=== PATIENT | male | born 1955 | race Caucasian/White ===

== ENCOUNTER 2018-11-21 12:16 | Observation (INO) ==
[2018-11-21] MEDS ORDERED: LACTULOSE 20 GM/30 ML UDCUP PO PRN (14:56)
[2018-11-21] MEDS ORDERED: NICOTINE 21 MG/24 HR PATCH TRANSDERM PRN (14:56)
[2018-11-21] MEDS ORDERED: BISACODYL 5 MG TABLET PO PRN (14:56)
[2018-11-21] MEDS ORDERED: diphenhydrAMINE CAP 25 MG CAPSULE PO PRN (14:56)
[2018-11-21] MEDS ORDERED: ACETAMINOPHEN 325 MG TABLET PO PRN (14:56)
[2018-11-21] MEDS ORDERED: DOCUSATE SODIUM 100 MG CAPSULE PO PRN (14:56)
[2018-11-21] MEDS ORDERED: DEXTROSE 10% 25 GM/250 ML BAG IV PRN (14:56)
[2018-11-21] MEDS ORDERED: ONDANSETRON 4 MG/2 ML VIAL IV PRN (14:56)
[2018-11-21] MEDS ORDERED: GLUCAGON 1 MG VIAL IM PRN (14:56)
[2018-11-21] MEDS ORDERED: ALBUTEROL 2.5 MG/3 ML NEB RESP TX PRN (15:10)
[2018-11-21] MEDS: cefTRIAXone 1,000 MG in SYRINGE 1 EACH IV SCH (16:21)
[2018-11-21] MEDS: SODIUM CHLORIDE 0.9% 1,000 ML IV SCH (16:21)
[2018-11-21] MEDS: INSULIN REGULAR 100 UNIT/ML SUBCUT SCH ×2 (17:02→21:03)
[2018-11-21] MEDS ORDERED: lisinopriL 10 MG TABLET PO SCH (21:00)
[2018-11-21] MEDS ORDERED: GABAPENTIN 300 MG CAPSULE PO SCH (21:00)
[2018-11-21] MEDS: cilostazoL 100 MG TABLET PO SCH (21:02)
[2018-11-21] MEDS: ASCORBIC ACID 500 MG TABLET PO SCH (21:02)
[2018-11-21] MEDS: MAGNESIUM CHLORIDE 64 MG TABLET PO SCH (21:03)
[2018-11-21] MEDS: ALPRAZolam 0.5 MG TABLET PO SCH (21:03)
[2018-11-21] MEDS: SIMVASTATIN 40 MG TABLET PO SCH (21:03)
[2018-11-21] MEDS: ASPIRIN EC 81 MG TABLET PO SCH (21:03)
[2018-11-21] MEDS: GABAPENTIN 600 MG TABLET PO SCH (21:26)
[2018-11-22] MEDS: SODIUM CHLORIDE 0.9% 1,000 ML IV SCH ×2 (02:22→14:10)
[2018-11-22 05:20] LABS: Basophils # 0.1 10*3/uL (0.0-0.2); Basophils % 0.4 % (0.0-0.8); Eosinophils # 0.1 10*3/uL (0.0-0.87); Eosinophils % 0.8 % (0.00-10.9); Hematocrit 33.6 VOL% (42.0-52.0); Immature Granulocytes % 0.8 %; Lymphocytes # 2.2 10*3/uL (1.4-4.0); Lymphocytes % 17.3 % (21.2-54.2); Mean Corpuscular HGB Conc 32.7 GM/DL (32-36); Mean Corpuscular Volume 94.4 FL (87-102); Mean Platelet Volume 8.9 FL (9.6-12.0); Monocytes % 7.8 % (1.7-12.7); Neutrophils % 72.9 % (38.7-73.9); Platelet Count 202 T/CUMM (130-400); Red Blood Count 3.56 MC/CUMM (3.8-5.5); Red Cell Distribution Width 13.2 % (9.3-17.3); White Blood Count 12.9 T/CUMM (4-12)
[2018-11-22 05:41] LABS: Calcium 8.9 MG/DL (8.5-10.1); Osmolality,Calculated 283.1 MOS/KG (273-304)
[2018-11-22] MEDS ORDERED: METOPROLOL SUCCINATE XL 25 MG TABLET PO SCH (09:00)
[2018-11-22] MEDS: ASCORBIC ACID 500 MG TABLET PO SCH ×2 (09:15→21:18)
[2018-11-22] MEDS: PANTOPRAZOLE 40 MG TABLET PO SCH (09:16)
[2018-11-22] MEDS: MAGNESIUM CHLORIDE 64 MG TABLET PO SCH ×2 (09:16→21:10)
[2018-11-22] MEDS: METOPROLOL SUCCINATE XL 25 MG TABLET PO SCH (09:16)
[2018-11-22] MEDS: SERTRALINE 50 MG TABLET PO SCH (09:17)
[2018-11-22] MEDS: ENOXAPARIN 40 MG/0.4 ML SYRINGE SUBCUT SCH (09:17)
[2018-11-22] MEDS: GABAPENTIN 300 MG CAPSULE PO SCH (09:17)
[2018-11-22] MEDS: cefTRIAXone 1,000 MG in SYRINGE 1 EACH IV SCH (09:18)
[2018-11-22] MEDS: cilostazoL 100 MG TABLET PO SCH ×2 (09:18→21:19)
[2018-11-22] MEDS: INSULIN REGULAR 100 UNIT/ML SUBCUT SCH ×4 (09:19→21:26)
[2018-11-22] MEDS ORDERED: NON-FORMULARY MEDICATION (Gabapentin 600 MG) PO SCH (21:00)
[2018-11-22] MEDS ORDERED: lisinopriL 10 MG TABLET PO SCH (21:00)
[2018-11-22] MEDS: SIMVASTATIN 40 MG TABLET PO SCH (21:10)
[2018-11-22] MEDS: ALPRAZolam 0.5 MG TABLET PO SCH (21:10)
[2018-11-22] MEDS: GABAPENTIN 600 MG TABLET PO SCH (21:18)
[2018-11-22] MEDS: ASPIRIN EC 81 MG TABLET PO SCH (21:19)
[2018-11-23 05:35] LABS: Basophils % 0.4 % (0.0-0.8); Eosinophils # 0.2 10*3/uL (0.0-0.87); Eosinophils % 1.6 % (0.00-10.9); Hematocrit 34.8 VOL% (42.0-52.0); Hemoglobin 11.3 GM/DL (14.0-18.0); Immature Granulocytes % 0.4 %; Immature Granulocytes Absolute 0.04 #; Lymphocytes # 2.5 10*3/uL (1.4-4.0); Lymphocytes % 24.6 % (21.2-54.2); Mean Corpuscular HGB Conc 32.5 GM/DL (32-36); Mean Corpuscular Volume 92.8 FL (87-102); Mean Platelet Volume 8.8 FL (9.6-12.0); Monocytes % 7.8 % (1.7-12.7); Neutrophils % 65.2 % (38.7-73.9); Platelet Count 226 T/CUMM (130-400); Red Blood Count 3.75 MC/CUMM (3.8-5.5); Red Cell Distribution Width 13.2 % (9.3-17.3); White Blood Count 9.9 T/CUMM (4-12)
[2018-11-23] MEDS: INSULIN REGULAR 100 UNIT/ML SUBCUT SCH ×2 (07:44→12:51)
[2018-11-23] MEDS ORDERED: SIMETHICONE CHEW 125 MG TABLET PO PRN (08:23)
[2018-11-23] MEDS ORDERED: LACTOBACILLUS ACIDOPHILUS/BULGARICUS CAPLET PO SCH (09:00)
[2018-11-23] MEDS: cilostazoL 100 MG TABLET PO SCH (09:06)
[2018-11-23] MEDS: MAGNESIUM CHLORIDE 64 MG TABLET PO SCH (09:06)
[2018-11-23] MEDS: SERTRALINE 50 MG TABLET PO SCH (09:06)
[2018-11-23] MEDS: PANTOPRAZOLE 40 MG TABLET PO SCH (09:06)
[2018-11-23] MEDS: GABAPENTIN 300 MG CAPSULE PO SCH (09:06)
[2018-11-23] MEDS: ASCORBIC ACID 500 MG TABLET PO SCH (09:07)
[2018-11-23] MEDS: ENOXAPARIN 40 MG/0.4 ML SYRINGE SUBCUT SCH (09:07)
[2018-11-23] MEDS: cefTRIAXone 1,000 MG in SYRINGE 1 EACH IV SCH (09:08)
[2018-11-23 11:27] VITALS: BP 104/57
[2018-11-23] MEDS: METOPROLOL SUCCINATE XL 25 MG TABLET PO SCH (12:23)
== END 2018-11-23 13:15 | disposition home or self-care (01) ==
LOC: N.2E → SUATTDRO 12:32
PROVIDERS: ADMIT Internal Medicine; ATTEND Internal Medicine

== ENCOUNTER 2019-04-22 03:57 | Inpatient (IN) ==
[2019-04-22] MEDS ORDERED: PANTOPRAZOLE 40 MG VIAL IV STA (04:07)
[2019-04-22] MEDS ORDERED: LACTATED RINGERS 1,000 ML IV ONE (04:10)
[2019-04-22 04:30] LABS: Basophils # 0.1 10*3/uL (0.0-0.2); Basophils % 0.3 % (0.0-0.8); Eosinophils # 0.1 10*3/uL (0.0-0.87); Eosinophils % 0.7 % (0.00-10.9); Hematocrit 24.6 VOL% (42.0-52.0); Hemoglobin 7.9 GM/DL (14.0-18.0); Immature Granulocytes % 1.2 %; Immature Granulocytes Absolute 0.17 #; Lymphocytes # 2.5 10*3/uL (1.4-4.0); Lymphocytes % 17.1 % (21.2-54.2); Mean Corpuscular HGB Conc 32.1 GM/DL (32-36); Mean Corpuscular Volume 96.5 FL (87-102); Monocytes % 5.9 % (1.7-12.7); Neutrophils % 74.8 % (38.7-73.9); Platelet Count 186 T/CUMM (130-400); Red Blood Count 2.55 MC/CUMM (3.8-5.5); Red Cell Distribution Width 13.6 % (9.3-17.3); White Blood Count 14.6 T/CUMM (4-12)
[2019-04-22 04:40] LABS: PT Patient Result 11.1 SECS (9.6-12.2); Partial Thromboplastin Time < 21.0 SECS (20.8-36.0)
[2019-04-22 04:54] LABS: Albumin 3.2 G/DL (3.4-5.0); Calcium 8.7 MG/DL (8.5-10.1); Osmolality,Calculated 303.5 MOS/KG (273-304); Total Protein 5.5 G/DL (6.4-8.3)
[2019-04-22] MEDS ORDERED: hydrALAZINE 20 MG/1 ML VIAL IV PRN (05:10)
[2019-04-22] MEDS ORDERED: NICOTINE 21 MG/24 HR PATCH TRANSDERM PRN (05:10)
[2019-04-22] MEDS ORDERED: GLUCAGON 1 MG VIAL IM PRN (05:13)
[2019-04-22] MEDS ORDERED: DEXTROSE 10% 250 ML BAG IV PRN (05:14)
[2019-04-22] MEDS: PANTOPRAZOLE INJ 200 MG in SODIUM CHLORIDE 0.9% 250 ML IV SCH (05:17)
[2019-04-22] MEDS ORDERED: SODIUM CHLORIDE 0.9% 1,000 ML IV PRN (05:48)
[2019-04-22 06:03] LABS: Basophils % 0.2 % (0.0-0.8); Eosinophils % 0.2 % (0.00-10.9); Hematocrit 21.8 VOL% (42.0-52.0); Hemoglobin 7.1 GM/DL (14.0-18.0); INR 1.1; Immature Granulocytes % 0.9 %; Lymphocytes # 1.4 10*3/uL (1.4-4.0); Lymphocytes % 11.6 % (21.2-54.2); Mean Corpuscular HGB Conc 32.6 GM/DL (32-36); Mean Corpuscular Volume 95.2 FL (87-102); Monocytes % 3.3 % (1.7-12.7); Neutrophils % 83.8 % (38.7-73.9); PT Patient Result 11.5 SECS (9.6-12.2); Platelet Count 153 T/CUMM (130-400); Red Blood Count 2.29 MC/CUMM (3.8-5.5); Red Cell Distribution Width 13.6 % (9.3-17.3); White Blood Count 11.7 T/CUMM (4-12)
[2019-04-22 07:06] LABS: Sedimentation Rate-Westergren 15 MM/HR (0-20)
[2019-04-22 07:12] LABS: Hematocrit 21.7 VOL% (42.0-52.0); Hemoglobin 7.1 GM/DL (14.0-18.0)
[2019-04-22 07:51] LABS: Folate 8.7 NG/ML (5.4-24.0); Vitamin B12 568 PG/ML (211-911)
[2019-04-22] MEDS: INSULIN REGULAR 100 UNIT/ML SUBCUT SCH ×4 (08:03→21:35)
[2019-04-22] MEDS: SERTRALINE 50 MG TABLET PO SCH (10:13)
[2019-04-22] MEDS: SODIUM CHLORIDE 0.9% 1,000 ML IV SCH (11:37)
[2019-04-22 14:11] LABS: Hematocrit 26.3 VOL% (42.0-52.0); Hemoglobin 8.5 GM/DL (14.0-18.0)
[2019-04-22 20:08] LABS: Hematocrit 26.3 VOL% (42.0-52.0); Hemoglobin 8.6 GM/DL (14.0-18.0)
[2019-04-22] MEDS: TAMSULOSIN 0.4 MG CAPSULE PO SCH (21:02)
[2019-04-23] MEDS: ACETAMINOPHEN 325 MG TABLET PO PRN (00:02)
[2019-04-23] MEDS: ALPRAZolam 0.5 MG TABLET PO PRN ×2 (00:02→20:39)
[2019-04-23] MEDS: SODIUM CHLORIDE 0.9% 1,000 ML IV SCH ×4 (00:06→22:20)
[2019-04-23 05:28] LABS: Basophils % 0.2 % (0.0-0.8); Eosinophils # 0.1 10*3/uL (0.0-0.87); Eosinophils % 1.1 % (0.00-10.9); Hematocrit 25.7 VOL% (42.0-52.0); Hemoglobin 8.4 GM/DL (14.0-18.0); Immature Granulocytes % 0.4 %; Immature Granulocytes Absolute 0.04 #; Lymphocytes # 2.9 10*3/uL (1.4-4.0); Lymphocytes % 27.8 % (21.2-54.2); Mean Corpuscular HGB Conc 32.7 GM/DL (32-36); Mean Corpuscular Volume 94.5 FL (87-102); Mean Platelet Volume 9.3 FL (9.6-12.0); Monocytes % 7.1 % (1.7-12.7); Neutrophils % 63.4 % (38.7-73.9); Platelet Count 138 T/CUMM (130-400); Red Blood Count 2.72 MC/CUMM (3.8-5.5); Red Cell Distribution Width 13.9 % (9.3-17.3); White Blood Count 10.6 T/CUMM (4-12)
[2019-04-23 05:46] LABS: Calcium 8.3 MG/DL (8.5-10.1); Osmolality,Calculated 281.7 MOS/KG (273-304)
[2019-04-23] MEDS: PANTOPRAZOLE INJ 200 MG in SODIUM CHLORIDE 0.9% 250 ML IV SCH (06:38)
[2019-04-23] MEDS: INSULIN REGULAR 100 UNIT/ML SUBCUT SCH ×4 (07:34→20:47)
[2019-04-23] MEDS ORDERED: ETOMIDATE 40 MG/20 ML VIAL IV ONE (08:29)
[2019-04-23] MEDS ORDERED: propofoL 200 MG/20 ML VIAL IV ONE (08:29)
[2019-04-23] MEDS ORDERED: LIDOCAINE 2% 5 ML VIAL ONE (08:29)
[2019-04-23] MEDS ORDERED: PANTOPRAZOLE 40 MG TABLET PO SCH (09:00)
[2019-04-23] MEDS: PANTOPRAZOLE 40 MG TABLET PO SCH ×2 (09:40→20:39)
[2019-04-23] MEDS: SERTRALINE 50 MG TABLET PO SCH (09:40)
[2019-04-23] MEDS: ASPIRIN EC 81 MG TABLET PO SCH (09:40)
[2019-04-23] MEDS: GABAPENTIN 300 MG CAPSULE PO SCH (14:38)
[2019-04-23] MEDS ORDERED: ALUMINUM/MAGNES/SIMETH MAX STR 30 ML UDCUP PO PRN (19:03)
[2019-04-23] MEDS ORDERED: CALCIUM CARBONATE CHEW 500 MG TABLET PO PRN (19:57)
[2019-04-23] MEDS: TAMSULOSIN 0.4 MG CAPSULE PO SCH (20:39)
[2019-04-23] MEDS: ROSUVASTATIN 20 MG TABLET PO SCH (20:39)
[2019-04-23] MEDS: GABAPENTIN 600 MG TABLET PO SCH (20:39)
[2019-04-24 05:05] LABS: Basophils % 0.3 % (0.0-0.8); Eosinophils # 0.1 10*3/uL (0.0-0.87); Eosinophils % 0.9 % (0.00-10.9); Hematocrit 24.5 VOL% (42.0-52.0); Hemoglobin 8.2 GM/DL (14.0-18.0); Immature Granulocytes % 0.6 %; Immature Granulocytes Absolute 0.07 #; Lymphocytes # 2.2 10*3/uL (1.4-4.0); Lymphocytes % 19.8 % (21.2-54.2); Mean Corpuscular HGB Conc 33.5 GM/DL (32-36); Mean Corpuscular Volume 94.2 FL (87-102); Mean Platelet Volume 9.4 FL (9.6-12.0); Neutrophils % 70.4 % (38.7-73.9); Platelet Count 127 T/CUMM (130-400); Red Cell Distribution Width 13.5 % (9.3-17.3); White Blood Count 11.3 T/CUMM (4-12)
[2019-04-24 05:21] LABS: Calcium 8.5 MG/DL (8.5-10.1)
[2019-04-24] MEDS: MORPHINE 4 MG/1 ML VIAL IV PRN ×3 (06:40→15:43)
[2019-04-24] MEDS ORDERED: ALUMINUM/MAGNES/SIMETH MAX STR 30 ML UDCUP PO ONE (09:22)
[2019-04-24] MEDS: SERTRALINE 50 MG TABLET PO SCH (09:51)
[2019-04-24] MEDS: ASPIRIN EC 81 MG TABLET PO SCH (09:51)
[2019-04-24] MEDS: PANTOPRAZOLE 40 MG TABLET PO SCH ×2 (09:51→20:19)
[2019-04-24] MEDS: GABAPENTIN 300 MG CAPSULE PO SCH (09:51)
[2019-04-24] MEDS: INSULIN REGULAR 100 UNIT/ML SUBCUT SCH ×4 (09:52→20:20)
[2019-04-24 10:15] LABS: Hemoglobin A1 (Alkaline) 96.8 % (96.5-98.5); Hemoglobin A2 (Alkaline) 3.2 % (1.5-3.5)
[2019-04-24] MEDS ORDERED: NITROGLYCERIN SL 0.4 MG TABLET SL PRN (10:20)
[2019-04-24] MEDS ORDERED: ASPIRIN CHEW 81 MG TABLET PO STA (10:25)
[2019-04-24] MEDS: METOPROLOL TARTRATE 25 MG TABLET PO SCH ×2 (10:43→20:19)
[2019-04-24] MEDS: ONDANSETRON 4 MG/2 ML VIAL IV PRN (10:44)
[2019-04-24] MEDS ORDERED: SODIUM CHLORIDE 0.9% 1,000 ML IV PRN ×2 (11:03→15:35)
[2019-04-24 12:20] LABS: CKMB % 9.9 %
[2019-04-24 12:26] LABS: Troponin I 11.9 NG/ML (0.00-0.045)
[2019-04-24] MEDS: SODIUM CHLORIDE 0.9% 1,000 ML IV SCH ×2 (12:32→23:55)
[2019-04-24 13:00] LABS: Hematocrit 23.5 VOL% (42.0-52.0); Hemoglobin 7.9 GM/DL (14.0-18.0)
[2019-04-24] MEDS: ENOXAPARIN 80 MG/0.8 ML SYRINGE SUBCUT SCH (13:38)
[2019-04-24 15:09] LABS: CKMB % 10.5 %
[2019-04-24 15:56] LABS: Troponin I 26.9 NG/ML (0.00-0.045)
[2019-04-24 17:17] LABS: Hematocrit 24.7 VOL% (42.0-52.0)
[2019-04-24 17:52] LABS: CKMB % 10.4 %
[2019-04-24 17:56] LABS: Troponin I 39.3 NG/ML (0.00-0.045)
[2019-04-24] MEDS: GABAPENTIN 600 MG TABLET PO SCH (20:19)
[2019-04-24] MEDS: TAMSULOSIN 0.4 MG CAPSULE PO SCH (20:19)
[2019-04-24] MEDS: ROSUVASTATIN 20 MG TABLET PO SCH (20:19)
[2019-04-25] MEDS: ENOXAPARIN 80 MG/0.8 ML SYRINGE SUBCUT SCH ×2 (01:00→14:08)
[2019-04-25 01:16] LABS: Hematocrit 28.6 VOL% (42.0-52.0); Hemoglobin 9.4 GM/DL (14.0-18.0)
[2019-04-25 02:34] LABS: CKMB % 7.3 %
[2019-04-25 06:56] LABS: Calcium 7.9 MG/DL (8.5-10.1); Osmolality,Calculated 273.2 MOS/KG (273-304)
[2019-04-25 07:53] LABS: Basophils % 0.1 % (0.0-0.8); Hematocrit 27.9 VOL% (42.0-52.0); Hemoglobin 9.3 GM/DL (14.0-18.0); Immature Granulocytes % 0.6 %; Immature Granulocytes Absolute 0.05 #; Lymphocytes # 1.7 10*3/uL (1.4-4.0); Lymphocytes % 21.3 % (21.2-54.2); Mean Corpuscular HGB Conc 33.3 GM/DL (32-36); Mean Corpuscular Volume 94.6 FL (87-102); Monocytes % 9.8 % (1.7-12.7); Neutrophils % 68.2 % (38.7-73.9); Platelet Count 62 T/CUMM (130-400); Red Blood Count 2.95 MC/CUMM (3.8-5.5); Red Cell Distribution Width 14.4 % (9.3-17.3); White Blood Count 8.1 T/CUMM (4-12)
[2019-04-25 08:22] LABS: Hypochromasia Slight; Microcytosis Slight; Platelet Estimate Decreased
[2019-04-25 08:23] LABS: Polychromasia Slight
[2019-04-25] MEDS: METOPROLOL TARTRATE 25 MG TABLET PO SCH ×2 (09:15→21:18)
[2019-04-25] MEDS: GABAPENTIN 300 MG CAPSULE PO SCH (09:37)
[2019-04-25] MEDS: PANTOPRAZOLE 40 MG TABLET PO SCH ×2 (09:38→21:17)
[2019-04-25] MEDS: SERTRALINE 50 MG TABLET PO SCH (09:39)
[2019-04-25] MEDS: ASPIRIN EC 81 MG TABLET PO SCH (09:50)
[2019-04-25] MEDS ORDERED: SODIUM CHLORIDE 0.9% 1,000 ML IV PRN (10:14)
[2019-04-25] MEDS: INSULIN REGULAR 100 UNIT/ML SUBCUT SCH ×4 (10:27→21:25)
[2019-04-25] MEDS: SODIUM CHLORIDE 0.9% 1,000 ML IV SCH (10:27)
[2019-04-25] MEDS ORDERED: FUROSEMIDE 40 MG TABLET PO SCH (10:30)
[2019-04-25] MEDS: SACUBITRIL/VALSARTAN 49-51 MG TABLET PO SCH ×2 (11:20→21:18)
[2019-04-25 11:43] LABS: Amorphous Crystals,Urine Few /HPF (Few); Apearance,Urine CLOUDY (Clear); Bacteria,Urine Few /HPF (Few); Bilirubin,Urine Negative (Negative); Blood, Urine Large mg/dL (Negative); Glucose,Urine (UA) Negative (Negative); Ketones,Urine 5 mg/dL (Negative); Mucus,Urine Occasional /LPF (Occasional); Nitrite,Urine Negative (Negative); Protein,Urine 100 MG/DL; Squamous Epithelial Cell,Urine Occasional /HPF (0-10); Urine Color Amber (Yellow); Urine Specific Gravity 1.017 (1.001-1.035); Urine Urobilinogen < 2.0 EU/DL (0.2-1.0); WBC,Urine 3 /HPF (0-6)
[2019-04-25] MEDS: MORPHINE 4 MG/1 ML VIAL IV PRN (18:24)
[2019-04-25 21:03] LABS: Hematocrit 34.2 VOL% (42.0-52.0); Hemoglobin 11.1 GM/DL (14.0-18.0)
[2019-04-25] MEDS: ROSUVASTATIN 20 MG TABLET PO SCH (21:18)
[2019-04-25] MEDS: ALPRAZolam 0.5 MG TABLET PO PRN (21:18)
[2019-04-25] MEDS: TAMSULOSIN 0.4 MG CAPSULE PO SCH (21:19)
[2019-04-25] MEDS: diphenhydrAMINE CAP 25 MG CAPSULE PO PRN (21:19)
[2019-04-25] MEDS: GABAPENTIN 600 MG TABLET PO SCH (21:24)
[2019-04-26] MEDS: ENOXAPARIN 80 MG/0.8 ML SYRINGE SUBCUT SCH ×2 (00:51→14:19)
[2019-04-26 05:08] LABS: Basophils % 0.3 % (0.0-0.8); Eosinophils % 0.1 % (0.00-10.9); Hematocrit 34.7 VOL% (42.0-52.0); Hemoglobin 11.5 GM/DL (14.0-18.0); Immature Granulocytes % 0.7 %; Immature Granulocytes Absolute 0.05 #; Lymphocytes % 14.4 % (21.2-54.2); Mean Corpuscular HGB Conc 33.1 GM/DL (32-36); Mean Corpuscular Volume 92.8 FL (87-102); Mean Platelet Volume 10.7 FL (9.6-12.0); Monocytes % 7.1 % (1.7-12.7); NRBC # 0.02 10*3/uL; Neutrophils % 77.4 % (38.7-73.9); Red Blood Count 3.74 MC/CUMM (3.8-5.5); Red Cell Distribution Width 14.6 % (9.3-17.3); White Blood Count 7.2 T/CUMM (4-12)
[2019-04-26 05:15] LABS: Platelet Count 52 T/CUMM (130-400)
[2019-04-26 05:27] LABS: Hypochromasia 1+; Platelet Estimate Decreased
[2019-04-26 05:28] LABS: Microcytosis Slight
[2019-04-26 05:36] LABS: Calcium 7.6 MG/DL (8.5-10.1); Osmolality,Calculated 286.4 MOS/KG (273-304)
[2019-04-26] MEDS: INSULIN REGULAR 100 UNIT/ML SUBCUT SCH ×4 (08:22→21:35)
[2019-04-26] MEDS: SACUBITRIL/VALSARTAN 49-51 MG TABLET PO SCH ×2 (08:24→21:32)
[2019-04-26] MEDS: ASPIRIN EC 81 MG TABLET PO SCH (08:24)
[2019-04-26] MEDS: GABAPENTIN 300 MG CAPSULE PO SCH (08:24)
[2019-04-26] MEDS: FUROSEMIDE 20 MG TABLET PO SCH (08:24)
[2019-04-26] MEDS: SERTRALINE 50 MG TABLET PO SCH (08:25)
[2019-04-26] MEDS: PANTOPRAZOLE 40 MG TABLET PO SCH ×2 (08:25→21:34)
[2019-04-26] MEDS: METOPROLOL TARTRATE 25 MG TABLET PO SCH ×2 (08:25→21:33)
[2019-04-26] MEDS: diphenhydrAMINE CAP 25 MG CAPSULE PO PRN ×2 (08:25→21:34)
[2019-04-26] MEDS ORDERED: DOCUSATE SODIUM 100 MG CAPSULE PO SCH (09:00)
[2019-04-26] MEDS: ALBUTEROL/IPRATROPIUM 3 ML NEB RESP TX PRN ×2 (11:55→21:07)
[2019-04-26] MEDS ORDERED: BISACODYL 10 MG SUPP RECTAL ONE (12:17)
[2019-04-26] MEDS: POLYETHYLENE GLYCOL POWDER 17 GM PACK PO SCH ×2 (14:19→21:35)
[2019-04-26] MEDS: ROSUVASTATIN 20 MG TABLET PO SCH (21:32)
[2019-04-26] MEDS: ALPRAZolam 0.5 MG TABLET PO PRN (21:33)
[2019-04-26] MEDS: TAMSULOSIN 0.4 MG CAPSULE PO SCH (21:34)
[2019-04-26] MEDS: GABAPENTIN 600 MG TABLET PO SCH (21:35)
[2019-04-26] MEDS: MORPHINE 4 MG/1 ML VIAL IV PRN (21:35)
[2019-04-26] MEDS ORDERED: DILTIAZEM 25 MG/5 ML VIAL IV ONE (22:44)
[2019-04-26] MEDS: dilTIAZem Drip 125 MG/125 ML PREMIX IV SCH (22:53)
[2019-04-27] MEDS: ENOXAPARIN 80 MG/0.8 ML SYRINGE SUBCUT SCH ×2 (02:57→12:53)
[2019-04-27 06:17] LABS: Basophils % 0.2 % (0.0-0.8); Eosinophils % 0.2 % (0.00-10.9); Hematocrit 34.4 VOL% (42.0-52.0); Hemoglobin 11.4 GM/DL (14.0-18.0); Immature Granulocytes % 1.3 %; Immature Granulocytes Absolute 0.07 #; Lymphocytes # 0.7 10*3/uL (1.4-4.0); Lymphocytes % 12.5 % (21.2-54.2); Mean Corpuscular HGB Conc 33.1 GM/DL (32-36); Mean Corpuscular Volume 91.7 FL (87-102); Mean Platelet Volume 10.2 FL (9.6-12.0); Monocytes % 6.9 % (1.7-12.7); Neutrophils % 78.9 % (38.7-73.9); Platelet Count 57 T/CUMM (130-400); Red Blood Count 3.75 MC/CUMM (3.8-5.5); Red Cell Distribution Width 14.5 % (9.3-17.3); White Blood Count 5.5 T/CUMM (4-12)
[2019-04-27 06:35] LABS: Calcium 7.6 MG/DL (8.5-10.1); Osmolality,Calculated 285.5 MOS/KG (273-304)
[2019-04-27 06:53] LABS: Hypochromasia 1+; Lymphocytes 10 % (20-55); Microcytosis Slight; Nucleated Red Blood Cells 1 (0-5); Platelet Estimate Decreased; Segmented Neutrophils 82 % (50-85); Total Cells Counted 100
[2019-04-27] MEDS ORDERED: FUROSEMIDE 40 MG/4 ML VIAL IV ONE (08:12)
[2019-04-27] MEDS: dilTIAZem Drip 125 MG/125 ML PREMIX IV SCH ×2 (08:23→23:10)
[2019-04-27] MEDS: INSULIN REGULAR 100 UNIT/ML SUBCUT SCH ×4 (08:33→21:58)
[2019-04-27] MEDS: ASPIRIN EC 81 MG TABLET PO SCH (08:43)
[2019-04-27] MEDS: SERTRALINE 50 MG TABLET PO SCH (08:43)
[2019-04-27] MEDS: PANTOPRAZOLE 40 MG TABLET PO SCH ×2 (08:43→21:58)
[2019-04-27] MEDS: ASCORBIC ACID 500 MG TABLET PO SCH ×2 (08:43→21:59)
[2019-04-27] MEDS: AMIODARONE 200 MG TABLET PO SCH ×2 (08:44→21:59)
[2019-04-27] MEDS: CLOPIDOGREL 75 MG TABLET PO SCH (08:44)
[2019-04-27] MEDS: GABAPENTIN 300 MG CAPSULE PO SCH (08:44)
[2019-04-27] MEDS: FLUTICASONE 50 MCG NASAL SPRAY 16 GM BOTTLE BOTH NARES SCH (08:44)
[2019-04-27] MEDS: POLYETHYLENE GLYCOL POWDER 17 GM PACK PO SCH ×2 (08:45→21:59)
[2019-04-27] MEDS: ALBUTEROL/IPRATROPIUM 3 ML NEB RESP TX PRN (09:00)
[2019-04-27] MEDS ORDERED: LEVALBUTEROL 1.25 MG/3 ML NEB RESP TX PRN (11:14)
[2019-04-27] MEDS: methylPREDNISolone SOD SUC 40 MG/1 ML VIAL IV SCH ×2 (12:06→21:59)
[2019-04-27] MEDS: PIPERACILLIN/TAZOBACTAM 3,375 MG in SODIUM CHLORIDE 0.9% 100 ML IV SCH ×2 (12:06→22:00)
[2019-04-27] MEDS: LEVALBUTEROL 1.25 MG/3 ML NEB RESP TX SCH ×2 (13:16→19:16)
[2019-04-27] MEDS: FUROSEMIDE 20 MG TABLET PO SCH (13:21)
[2019-04-27] MEDS: carvediloL 3.125 MG TABLET PO SCH ×2 (13:21→20:30)
[2019-04-27] MEDS ORDERED: DOCUSATE CALCIUM 240 MG CAPSULE PO PRN (14:32)
[2019-04-27] MEDS ORDERED: AMIODARONE INJ 150 MG in DEXTROSE 5% 100 ML IV ONE (19:24)
[2019-04-27] MEDS ORDERED: AMIODARONE INJ 450 MG in DEXTROSE 5% 241 ML IV SCH (19:30)
[2019-04-27 19:36] LABS: HIT Interpretation Negative (Negative)
[2019-04-27] MEDS: ROSUVASTATIN 20 MG TABLET PO SCH (21:58)
[2019-04-27] MEDS: TAMSULOSIN 0.4 MG CAPSULE PO SCH (21:59)
[2019-04-28] MEDS: ENOXAPARIN 80 MG/0.8 ML SYRINGE SUBCUT SCH ×2 (01:30→15:01)
[2019-04-28] MEDS: LEVALBUTEROL 1.25 MG/3 ML NEB RESP TX SCH ×4 (02:04→20:21)
[2019-04-28] MEDS: methylPREDNISolone SOD SUC 40 MG/1 ML VIAL IV SCH ×3 (04:04→22:30)
[2019-04-28] MEDS: PIPERACILLIN/TAZOBACTAM 3,375 MG in SODIUM CHLORIDE 0.9% 100 ML IV SCH ×3 (04:05→21:30)
[2019-04-28] MEDS: AMIODARONE INJ 450 MG in DEXTROSE 5% 241 ML IV SCH ×4 (04:37→23:00)
[2019-04-28 05:34] LABS: Hematocrit 37.3 VOL% (42.0-52.0); Hemoglobin 12.2 GM/DL (14.0-18.0); Immature Granulocytes % 0.4 %; Immature Granulocytes Absolute 0.02 #; Lymphocytes # 0.3 10*3/uL (1.4-4.0); Lymphocytes % 5.2 % (21.2-54.2); Mean Corpuscular HGB Conc 32.7 GM/DL (32-36); Mean Corpuscular Volume 92.6 FL (87-102); Mean Platelet Volume 9.8 FL (9.6-12.0); Monocytes % 4.4 % (1.7-12.7); Platelet Count 74 T/CUMM (130-400); Red Blood Count 4.03 MC/CUMM (3.8-5.5); Red Cell Distribution Width 14.2 % (9.3-17.3); White Blood Count 4.8 T/CUMM (4-12)
[2019-04-28 05:56] LABS: Calcium 7.7 MG/DL (8.5-10.1); Osmolality,Calculated 295.4 MOS/KG (273-304)
[2019-04-28 06:10] LABS: Hypochromasia 1+; Microcytosis Slight; Platelet Estimate Decreased
[2019-04-28] MEDS ORDERED: SODIUM CHLORIDE 0.9% 250 ML IV ONE ×2 (08:00→17:14)
[2019-04-28] MEDS: INSULIN REGULAR 100 UNIT/ML SUBCUT SCH ×4 (09:01→22:36)
[2019-04-28] MEDS: dilTIAZem Drip 125 MG/125 ML PREMIX IV SCH (09:03)
[2019-04-28] MEDS: AMIODARONE 200 MG TABLET PO SCH ×2 (09:11→22:35)
[2019-04-28] MEDS: ASPIRIN EC 81 MG TABLET PO SCH (09:11)
[2019-04-28] MEDS: carvediloL 3.125 MG TABLET PO SCH ×2 (09:11→22:36)
[2019-04-28] MEDS: SERTRALINE 50 MG TABLET PO SCH (09:11)
[2019-04-28] MEDS: ASCORBIC ACID 500 MG TABLET PO SCH ×2 (09:11→22:37)
[2019-04-28] MEDS: CLOPIDOGREL 75 MG TABLET PO SCH (09:11)
[2019-04-28] MEDS: PANTOPRAZOLE 40 MG TABLET PO SCH ×2 (09:11→22:37)
[2019-04-28] MEDS: FLUTICASONE 50 MCG NASAL SPRAY 16 GM BOTTLE BOTH NARES SCH (09:12)
[2019-04-28] MEDS: POLYETHYLENE GLYCOL POWDER 17 GM PACK PO SCH (09:12)
[2019-04-28] MEDS: LINACLOTIDE 145 MCG CAPSULE PO SCH (10:44)
[2019-04-28] MEDS ORDERED: INSULIN REGULAR 100 UNIT/ML SUBCUT ONE (12:35)
[2019-04-28] MEDS ORDERED: MAGNESIUM HYDROXIDE SUSP 30 ML UDCUP PO ONE (14:20)
[2019-04-28] MEDS: ROSUVASTATIN 20 MG TABLET PO SCH (22:36)
[2019-04-28] MEDS: TAMSULOSIN 0.4 MG CAPSULE PO SCH (22:36)
[2019-04-28] MEDS: INSULIN GLARGINE 100 UNIT/ML SUBCUT SCH (22:37)
[2019-04-29] MEDS: LEVALBUTEROL 1.25 MG/3 ML NEB RESP TX SCH ×4 (02:15→19:24)
[2019-04-29] MEDS: AMIODARONE INJ 450 MG in DEXTROSE 5% 241 ML IV SCH (02:58)
[2019-04-29] MEDS: dilTIAZem Drip 125 MG/125 ML PREMIX IV SCH (03:00)
[2019-04-29] MEDS: PIPERACILLIN/TAZOBACTAM 3,375 MG in SODIUM CHLORIDE 0.9% 100 ML IV SCH ×3 (03:25→20:25)
[2019-04-29 04:37] LABS: Basophils % 0.1 % (0.0-0.8); Hematocrit 40.4 VOL% (42.0-52.0); Hemoglobin 12.9 GM/DL (14.0-18.0); Immature Granulocytes % 0.4 %; Immature Granulocytes Absolute 0.06 #; Lymphocytes # 0.7 10*3/uL (1.4-4.0); Lymphocytes % 4.2 % (21.2-54.2); Mean Corpuscular HGB Conc 31.9 GM/DL (32-36); Mean Corpuscular Volume 95.3 FL (87-102); Mean Platelet Volume 10.4 FL (9.6-12.0); Monocytes % 3.2 % (1.7-12.7); Neutrophils % 92.1 % (38.7-73.9); Platelet Count 108 T/CUMM (130-400); Red Blood Count 4.24 MC/CUMM (3.8-5.5); Red Cell Distribution Width 14.7 % (9.3-17.3); White Blood Count 15.8 T/CUMM (4-12)
[2019-04-29 05:00] LABS: Calcium 7.6 MG/DL (8.5-10.1); Osmolality,Calculated 287.2 MOS/KG (273-304)
[2019-04-29 06:57] LABS: Anisocytosis 1+; Lymphocytes 4 % (20-55); Platelet Estimate Adequate; Segmented Neutrophils 95 % (50-85); Total Cells Counted 100
[2019-04-29] MEDS: INSULIN REGULAR 100 UNIT/ML SUBCUT SCH ×4 (08:58→21:23)
[2019-04-29] MEDS: AMIODARONE 200 MG TABLET PO SCH ×2 (08:58→21:20)
[2019-04-29] MEDS: SERTRALINE 50 MG TABLET PO SCH (08:59)
[2019-04-29] MEDS: PANTOPRAZOLE 40 MG TABLET PO SCH ×2 (08:59→21:21)
[2019-04-29] MEDS: carvediloL 3.125 MG TABLET PO SCH (08:59)
[2019-04-29] MEDS: ASPIRIN EC 81 MG TABLET PO SCH (08:59)
[2019-04-29] MEDS: ASCORBIC ACID 500 MG TABLET PO SCH ×2 (08:59→21:21)
[2019-04-29] MEDS: LINACLOTIDE 145 MCG CAPSULE PO SCH (08:59)
[2019-04-29] MEDS: CLOPIDOGREL 75 MG TABLET PO SCH (08:59)
[2019-04-29] MEDS: FLUTICASONE 50 MCG NASAL SPRAY 16 GM BOTTLE BOTH NARES SCH (09:09)
[2019-04-29] MEDS: methylPREDNISolone SOD SUC 40 MG/1 ML VIAL IV SCH ×2 (13:32→23:34)
[2019-04-29] MEDS: ENOXAPARIN 80 MG/0.8 ML SYRINGE SUBCUT SCH (14:16)
[2019-04-29] MEDS: carvediloL 6.25 MG TABLET PO SCH (17:09)
[2019-04-29] MEDS: ROSUVASTATIN 20 MG TABLET PO SCH (21:21)
[2019-04-29] MEDS: TAMSULOSIN 0.4 MG CAPSULE PO SCH (21:21)
[2019-04-29] MEDS: INSULIN GLARGINE 100 UNIT/ML SUBCUT SCH (21:22)
[2019-04-30] MEDS: LEVALBUTEROL 1.25 MG/3 ML NEB RESP TX SCH ×4 (01:26→20:54)
[2019-04-30] MEDS: PIPERACILLIN/TAZOBACTAM 3,375 MG in SODIUM CHLORIDE 0.9% 100 ML IV SCH ×3 (04:21→21:57)
[2019-04-30 05:40] LABS: Basophils % 0.1 % (0.0-0.8); Hematocrit 37.2 VOL% (42.0-52.0); Hemoglobin 12.7 GM/DL (14.0-18.0); Immature Granulocytes % 0.6 %; Immature Granulocytes Absolute 0.09 #; Lymphocytes # 0.8 10*3/uL (1.4-4.0); Lymphocytes % 5.1 % (21.2-54.2); Mean Corpuscular HGB Conc 34.1 GM/DL (32-36); Mean Corpuscular Volume 90.7 FL (87-102); Mean Platelet Volume 10.2 FL (9.6-12.0); Monocytes % 3.3 % (1.7-12.7); Neutrophils % 90.9 % (38.7-73.9); Platelet Count 130 T/CUMM (130-400); Red Cell Distribution Width 14.9 % (9.3-17.3); White Blood Count 15.6 T/CUMM (4-12)
[2019-04-30 06:07] LABS: Calcium 7.9 MG/DL (8.5-10.1); Osmolality,Calculated 293.7 MOS/KG (273-304)
[2019-04-30] MEDS: INSULIN REGULAR 100 UNIT/ML SUBCUT SCH ×4 (09:34→21:57)
[2019-04-30] MEDS: LINACLOTIDE 145 MCG CAPSULE PO SCH (09:34)
[2019-04-30] MEDS: ASPIRIN EC 81 MG TABLET PO SCH (09:35)
[2019-04-30] MEDS: SERTRALINE 50 MG TABLET PO SCH (09:36)
[2019-04-30] MEDS: carvediloL 6.25 MG TABLET PO SCH ×2 (09:36→17:00)
[2019-04-30] MEDS: ASCORBIC ACID 500 MG TABLET PO SCH ×2 (09:36→21:58)
[2019-04-30] MEDS: AMIODARONE 200 MG TABLET PO SCH ×2 (09:36→21:59)
[2019-04-30] MEDS: PANTOPRAZOLE 40 MG TABLET PO SCH ×2 (09:36→21:59)
[2019-04-30] MEDS: CLOPIDOGREL 75 MG TABLET PO SCH (09:36)
[2019-04-30] MEDS: FLUTICASONE 50 MCG NASAL SPRAY 16 GM BOTTLE BOTH NARES SCH (09:37)
[2019-04-30 10:30] LABS: Band Neutrophils 1 % (0-10); Lymphocytes 1 % (20-55); Platelet Estimate Adequate; Segmented Neutrophils 97 % (50-85); Total Cells Counted 100
[2019-04-30] MEDS: methylPREDNISolone SOD SUC 40 MG/1 ML VIAL IV SCH (11:15)
[2019-04-30] MEDS ORDERED: ENOXAPARIN 80 MG/0.8 ML SYRINGE SUBCUT ONE (14:00)
[2019-04-30] MEDS: INSULIN GLARGINE 100 UNIT/ML SUBCUT SCH (21:58)
[2019-04-30] MEDS: ROSUVASTATIN 20 MG TABLET PO SCH (21:59)
[2019-04-30] MEDS: TAMSULOSIN 0.4 MG CAPSULE PO SCH (21:59)
[2019-05-01] MEDS: methylPREDNISolone SOD SUC 40 MG/1 ML VIAL IV SCH ×2 (00:33→10:41)
[2019-05-01] MEDS: LEVALBUTEROL 1.25 MG/3 ML NEB RESP TX SCH ×4 (01:14→20:41)
[2019-05-01 04:14] LABS: Basophils % 0.1 % (0.0-0.8); Hemoglobin 12.9 GM/DL (14.0-18.0); Immature Granulocytes % 0.9 %; Immature Granulocytes Absolute 0.17 #; Lymphocytes # 1.2 10*3/uL (1.4-4.0); Lymphocytes % 6.8 % (21.2-54.2); Mean Corpuscular HGB Conc 33.1 GM/DL (32-36); Mean Corpuscular Volume 91.3 FL (87-102); Mean Platelet Volume 9.6 FL (9.6-12.0); Monocytes % 4.9 % (1.7-12.7); Neutrophils % 87.3 % (38.7-73.9); Platelet Count 155 T/CUMM (130-400); Red Blood Count 4.27 MC/CUMM (3.8-5.5); Red Cell Distribution Width 15.1 % (9.3-17.3); White Blood Count 18.2 T/CUMM (4-12)
[2019-05-01] MEDS: PIPERACILLIN/TAZOBACTAM 3,375 MG in SODIUM CHLORIDE 0.9% 100 ML IV SCH ×3 (04:15→20:48)
[2019-05-01 04:37] LABS: Band Neutrophils 3 % (0-10); Lymphocytes 6 % (20-55); Nucleated Red Blood Cells 1 (0-5); Segmented Neutrophils 90 % (50-85); Total Cells Counted 100
[2019-05-01 04:38] LABS: Hypochromasia Slight; Microcytosis Slight; Platelet Estimate Adequate; Polychromasia Slight
[2019-05-01 04:41] LABS: Calcium 8.4 MG/DL (8.5-10.1); Osmolality,Calculated 291.1 MOS/KG (273-304)
[2019-05-01] MEDS: AMIODARONE 200 MG TABLET PO SCH ×2 (08:28→20:48)
[2019-05-01] MEDS: CLOPIDOGREL 75 MG TABLET PO SCH (08:29)
[2019-05-01] MEDS: SERTRALINE 50 MG TABLET PO SCH (08:29)
[2019-05-01] MEDS: carvediloL 6.25 MG TABLET PO SCH ×2 (08:30→16:49)
[2019-05-01] MEDS: PANTOPRAZOLE 40 MG TABLET PO SCH ×2 (08:30→20:48)
[2019-05-01] MEDS: ASCORBIC ACID 500 MG TABLET PO SCH ×2 (08:31→20:46)
[2019-05-01] MEDS: FLUTICASONE 50 MCG NASAL SPRAY 16 GM BOTTLE BOTH NARES SCH (08:32)
[2019-05-01] MEDS: ASPIRIN EC 81 MG TABLET PO SCH (08:32)
[2019-05-01] MEDS: LINACLOTIDE 145 MCG CAPSULE PO SCH (08:33)
[2019-05-01] MEDS: INSULIN REGULAR 100 UNIT/ML SUBCUT SCH ×4 (10:01→20:46)
[2019-05-01] MEDS ORDERED: POTASSIUM CHLORIDE RIDER 10 MEQ in PREMIX 1 EACH IV PRN (13:24)
[2019-05-01] MEDS ORDERED: MAGNESIUM SULF RIDER 2 GM in PREMIX 1 EACH IV PRN (13:24)
[2019-05-01] MEDS: INSULIN GLARGINE 100 UNIT/ML SUBCUT SCH (20:45)
[2019-05-01] MEDS: ACETAMINOPHEN 325 MG TABLET PO PRN (20:47)
[2019-05-01] MEDS: ROSUVASTATIN 20 MG TABLET PO SCH (20:48)
[2019-05-01] MEDS: TAMSULOSIN 0.4 MG CAPSULE PO SCH (20:48)
[2019-05-01] MEDS: ONDANSETRON 4 MG/2 ML VIAL IV PRN (22:39)
[2019-05-01] MEDS ORDERED: LACTATED RINGERS 1,000 ML IV ONE ×2 (22:46→22:47)
[2019-05-01] MEDS ORDERED: PANTOPRAZOLE 40 MG VIAL IV ONE (22:48)
[2019-05-01 23:05] LABS: Basophils % 0.1 % (0.0-0.8); Hematocrit 34.5 VOL% (42.0-52.0); Hemoglobin 10.7 GM/DL (14.0-18.0); Immature Granulocytes % 0.9 %; Immature Granulocytes Absolute 0.15 #; Lymphocytes # 2.6 10*3/uL (1.4-4.0); Mean Corpuscular Volume 96.4 FL (87-102); Mean Platelet Volume 10.1 FL (9.6-12.0); Monocytes % 5.9 % (1.7-12.7); NRBC # 0.05 10*3/uL; Neutrophils % 78.1 % (38.7-73.9); Platelet Count 166 T/CUMM (130-400); Red Blood Count 3.58 MC/CUMM (3.8-5.5); Red Cell Distribution Width 15.5 % (9.3-17.3); White Blood Count 17.6 T/CUMM (4-12)
[2019-05-02] MEDS ORDERED: NOREPINEPHRINE 4 MG/4 ML VIAL IV ONE (01:06)
[2019-05-02 01:22] LABS: Anisocytosis 1+; Platelet Estimate Normal
[2019-05-02] MEDS ORDERED: LACTATED RINGERS 1,000 ML IV ONE ×2 (01:22→01:23)
[2019-05-02] MEDS: LEVALBUTEROL 1.25 MG/3 ML NEB RESP TX SCH ×4 (02:15→18:06)
[2019-05-02] MEDS: PIPERACILLIN/TAZOBACTAM 3,375 MG in SODIUM CHLORIDE 0.9% 100 ML IV SCH ×2 (04:30→16:45)
[2019-05-02 05:03] LABS: Calcium 7.4 MG/DL (8.5-10.1); Osmolality,Calculated 303.3 MOS/KG (273-304)
[2019-05-02 05:10] LABS: Hematocrit 22.7 VOL% (42.0-52.0); Immature Granulocytes % 0.8 %; Lymphocytes # 1.1 10*3/uL (1.4-4.0); Lymphocytes % 9.3 % (21.2-54.2); Mean Corpuscular HGB Conc 31.7 GM/DL (32-36); Mean Corpuscular Volume 93.8 FL (87-102); Mean Platelet Volume 10.3 FL (9.6-12.0); Monocytes % 5.7 % (1.7-12.7); Neutrophils % 84.2 % (38.7-73.9); Red Cell Distribution Width 15.4 % (9.3-17.3)
[2019-05-02 05:12] LABS: Hemoglobin 7.2 GM/DL (14.0-18.0); Platelet Count 131 T/CUMM (130-400); Red Blood Count 2.42 MC/CUMM (3.8-5.5); White Blood Count 11.9 T/CUMM (4-12)
[2019-05-02 05:14] LABS: Hypochromasia Slight; Microcytosis Slight; Platelet Estimate Normal
[2019-05-02] MEDS ORDERED: SODIUM CHLORIDE 0.9% 1,000 ML IV PRN ×4 (05:18→12:02)
[2019-05-02] MEDS ORDERED: NOREPINEPHRINE 8 MG in SODIUM CHLORIDE 0.9% 242 ML IV PRN (06:22)
[2019-05-02] MEDS: INSULIN REGULAR 100 UNIT/ML SUBCUT SCH ×4 (09:28→22:01)
[2019-05-02] MEDS: PANTOPRAZOLE 40 MG VIAL IV SCH ×2 (09:29→22:00)
[2019-05-02] MEDS: LINACLOTIDE 145 MCG CAPSULE PO SCH (09:34)
[2019-05-02] MEDS: LACTATED RINGERS 1,000 ML IV SCH (09:46)
[2019-05-02] MEDS ORDERED: DIAZEPAM 5 MG TABLET PO ONE (10:00)
[2019-05-02] MEDS ORDERED: diphenhydrAMINE CAP 25 MG CAPSULE PO ONE (10:00)
[2019-05-02 10:09] LABS: Hematocrit 25.5 VOL% (42.0-52.0); Hemoglobin 8.3 GM/DL (14.0-18.0)
[2019-05-02] MEDS: FLUTICASONE 50 MCG NASAL SPRAY 16 GM BOTTLE BOTH NARES SCH (15:37)
[2019-05-02] MEDS: AMIODARONE 200 MG TABLET PO SCH ×2 (15:37→21:50)
[2019-05-02] MEDS: ASCORBIC ACID 500 MG TABLET PO SCH ×2 (15:38→21:59)
[2019-05-02] MEDS: SERTRALINE 50 MG TABLET PO SCH (15:38)
[2019-05-02 17:29] LABS: Hematocrit 25.7 VOL% (42.0-52.0); Hemoglobin 8.8 GM/DL (14.0-18.0)
[2019-05-02] MEDS: ROSUVASTATIN 20 MG TABLET PO SCH (21:59)
[2019-05-02] MEDS: TAMSULOSIN 0.4 MG CAPSULE PO SCH (22:00)
[2019-05-02] MEDS: ACETAMINOPHEN 325 MG TABLET PO PRN (22:00)
[2019-05-02] MEDS: INSULIN GLARGINE 100 UNIT/ML SUBCUT SCH (22:01)
[2019-05-02 22:32] LABS: Hematocrit 29.5 VOL% (42.0-52.0); Hemoglobin 9.5 GM/DL (14.0-18.0)
[2019-05-03] MEDS: LEVALBUTEROL 1.25 MG/3 ML NEB RESP TX SCH ×4 (00:18→19:48)
[2019-05-03] MEDS: LACTATED RINGERS 1,000 ML IV SCH ×3 (00:22→13:37)
[2019-05-03] MEDS: PIPERACILLIN/TAZOBACTAM 3,375 MG in SODIUM CHLORIDE 0.9% 100 ML IV SCH ×3 (00:37→17:24)
[2019-05-03 02:42] LABS: Hematocrit 31.3 VOL% (42.0-52.0); Hemoglobin 10.2 GM/DL (14.0-18.0)
[2019-05-03 05:38] LABS: Calcium 7.8 MG/DL (8.5-10.1); Osmolality,Calculated 294.3 MOS/KG (273-304)
[2019-05-03] MEDS: INSULIN REGULAR 100 UNIT/ML SUBCUT SCH ×4 (08:37→21:01)
[2019-05-03] MEDS ORDERED: propofoL 200 MG/20 ML VIAL IV ONE (09:00)
[2019-05-03] MEDS ORDERED: ETOMIDATE 20 MG/10 ML VIAL IV ONE (09:00)
[2019-05-03] MEDS ORDERED: LIDOCAINE 2% 5 ML VIAL ONE (09:00)
[2019-05-03] MEDS: PANTOPRAZOLE 40 MG VIAL IV SCH ×2 (10:03→21:01)
[2019-05-03] MEDS: AMIODARONE 200 MG TABLET PO SCH ×2 (10:04→21:02)
[2019-05-03] MEDS: SERTRALINE 50 MG TABLET PO SCH (10:08)
[2019-05-03] MEDS: ASCORBIC ACID 500 MG TABLET PO SCH ×2 (10:08→21:03)
[2019-05-03] MEDS: FLUTICASONE 50 MCG NASAL SPRAY 16 GM BOTTLE BOTH NARES SCH (10:15)
[2019-05-03 10:57] LABS: Hematocrit 35.2 VOL% (42.0-52.0)
[2019-05-03] MEDS: carvediloL 3.125 MG TABLET PO SCH ×2 (11:48→22:36)
[2019-05-03] MEDS: ACETAMINOPHEN 325 MG TABLET PO PRN (13:34)
[2019-05-03] MEDS ORDERED: MORPHINE 4 MG/1 ML VIAL IV PRN (13:48)
[2019-05-03] MEDS: INSULIN GLARGINE 100 UNIT/ML SUBCUT SCH (21:02)
[2019-05-03] MEDS: ROSUVASTATIN 20 MG TABLET PO SCH (21:03)
[2019-05-03] MEDS: TAMSULOSIN 0.4 MG CAPSULE PO SCH (21:03)
[2019-05-03 22:09] LABS: Hematocrit 32.9 VOL% (42.0-52.0); Hemoglobin 10.5 GM/DL (14.0-18.0)
[2019-05-04] MEDS: PIPERACILLIN/TAZOBACTAM 3,375 MG in SODIUM CHLORIDE 0.9% 100 ML IV SCH ×3 (01:34→18:47)
[2019-05-04] MEDS: LEVALBUTEROL 1.25 MG/3 ML NEB RESP TX SCH ×4 (01:35→20:12)
[2019-05-04 05:51] LABS: Eosinophils # 0.2 10*3/uL (0.0-0.87); Eosinophils % 2.2 % (0.00-10.9); Hematocrit 31.7 VOL% (42.0-52.0); Hemoglobin 10.3 GM/DL (14.0-18.0); Immature Granulocytes % 0.6 %; Immature Granulocytes Absolute 0.07 #; Lymphocytes # 1.9 10*3/uL (1.4-4.0); Lymphocytes % 17.4 % (21.2-54.2); Mean Corpuscular HGB Conc 32.5 GM/DL (32-36); Mean Corpuscular Volume 88.3 FL (87-102); Mean Platelet Volume 9.7 FL (9.6-12.0); Neutrophils % 71.8 % (38.7-73.9); Platelet Count 132 T/CUMM (130-400); Red Blood Count 3.59 MC/CUMM (3.8-5.5); Red Cell Distribution Width 18.8 % (9.3-17.3)
[2019-05-04 06:18] LABS: Calcium 7.9 MG/DL (8.5-10.1); Osmolality,Calculated 290.1 MOS/KG (273-304)
[2019-05-04] MEDS ORDERED: ISOSORBIDE MONONITRATE 30 MG TABLET PO SCH (09:00)
[2019-05-04] MEDS: SERTRALINE 50 MG TABLET PO SCH (09:21)
[2019-05-04] MEDS: ASCORBIC ACID 500 MG TABLET PO SCH ×2 (09:21→20:55)
[2019-05-04] MEDS: AMIODARONE 200 MG TABLET PO SCH ×2 (09:22→20:55)
[2019-05-04] MEDS: FLUTICASONE 50 MCG NASAL SPRAY 16 GM BOTTLE BOTH NARES SCH (09:23)
[2019-05-04] MEDS: INSULIN REGULAR 100 UNIT/ML SUBCUT SCH ×4 (09:23→21:01)
[2019-05-04] MEDS: PANTOPRAZOLE 40 MG VIAL IV SCH ×2 (09:24→20:56)
[2019-05-04] MEDS: LACTATED RINGERS 1,000 ML IV SCH ×4 (09:27→21:02)
[2019-05-04] MEDS: carvediloL 3.125 MG TABLET PO SCH ×2 (12:30→23:22)
[2019-05-04] MEDS: ROSUVASTATIN 20 MG TABLET PO SCH (20:54)
[2019-05-04] MEDS: INSULIN GLARGINE 100 UNIT/ML SUBCUT SCH (20:54)
[2019-05-04] MEDS: TAMSULOSIN 0.4 MG CAPSULE PO SCH (20:55)
[2019-05-05] MEDS: LEVALBUTEROL 1.25 MG/3 ML NEB RESP TX SCH ×4 (00:35→20:40)
[2019-05-05 04:52] LABS: Basophils % 0.1 % (0.0-0.8); Eosinophils # 0.1 10*3/uL (0.0-0.87); Eosinophils % 0.9 % (0.00-10.9); Hemoglobin 10.4 GM/DL (14.0-18.0); Immature Granulocytes % 0.6 %; Immature Granulocytes Absolute 0.09 #; Lymphocytes # 1.3 10*3/uL (1.4-4.0); Lymphocytes % 9.2 % (21.2-54.2); Mean Corpuscular HGB Conc 32.5 GM/DL (32-36); Mean Corpuscular Volume 87.4 FL (87-102); Mean Platelet Volume 9.9 FL (9.6-12.0); Neutrophils % 83.2 % (38.7-73.9); Platelet Count 153 T/CUMM (130-400); Red Blood Count 3.66 MC/CUMM (3.8-5.5); Red Cell Distribution Width 18.3 % (9.3-17.3); White Blood Count 14.6 T/CUMM (4-12)
[2019-05-05 05:13] LABS: Calcium 8.1 MG/DL (8.5-10.1); Osmolality,Calculated 278.5 MOS/KG (273-304)
[2019-05-05] MEDS: LACTATED RINGERS 1,000 ML IV SCH ×2 (05:32→12:11)
[2019-05-05] MEDS ORDERED: FUROSEMIDE 40 MG/4 ML VIAL IV ONE (07:17)
[2019-05-05] MEDS: NITROGLYCERIN 2% OINT 1 INCH/GM PACK TOP SCH ×5 (07:26→23:39)
[2019-05-05] MEDS: INSULIN REGULAR 100 UNIT/ML SUBCUT SCH ×4 (08:25→20:56)
[2019-05-05] MEDS: PANTOPRAZOLE 40 MG VIAL IV SCH ×2 (08:27→20:59)
[2019-05-05] MEDS: GABAPENTIN 300 MG CAPSULE PO SCH (08:27)
[2019-05-05] MEDS: AMIODARONE 200 MG TABLET PO SCH ×2 (08:27→20:58)
[2019-05-05] MEDS: SERTRALINE 50 MG TABLET PO SCH (08:27)
[2019-05-05] MEDS: ASCORBIC ACID 500 MG TABLET PO SCH ×2 (08:27→20:57)
[2019-05-05] MEDS: FLUTICASONE 50 MCG NASAL SPRAY 16 GM BOTTLE BOTH NARES SCH (08:35)
[2019-05-05] MEDS: carvediloL 3.125 MG TABLET PO SCH ×2 (11:45→23:39)
[2019-05-05] MEDS: ASPIRIN CHEW 81 MG TABLET PO SCH (14:11)
[2019-05-05] MEDS ORDERED: MAGNESIUM SULF RIDER 4 GM in PREMIX 1 EACH IV PRN (14:38)
[2019-05-05] MEDS ORDERED: MAGNESIUM SULF RIDER 2 GM in PREMIX 1 EACH IV PRN (14:38)
[2019-05-05] MEDS: ROSUVASTATIN 20 MG TABLET PO SCH (20:57)
[2019-05-05] MEDS: INSULIN GLARGINE 100 UNIT/ML SUBCUT SCH (20:57)
[2019-05-05] MEDS: TAMSULOSIN 0.4 MG CAPSULE PO SCH (20:57)
[2019-05-06] MEDS: LEVALBUTEROL 1.25 MG/3 ML NEB RESP TX SCH ×4 (01:49→19:58)
[2019-05-06 04:53] LABS: Basophils % 0.1 % (0.0-0.8); Eosinophils # 0.3 10*3/uL (0.0-0.87); Eosinophils % 2.2 % (0.00-10.9); Hematocrit 29.1 VOL% (42.0-52.0); Hemoglobin 9.4 GM/DL (14.0-18.0); Immature Granulocytes % 0.9 %; Lymphocytes # 1.7 10*3/uL (1.4-4.0); Lymphocytes % 15.1 % (21.2-54.2); Mean Corpuscular HGB Conc 32.3 GM/DL (32-36); Mean Corpuscular Volume 89.3 FL (87-102); Monocytes % 9.1 % (1.7-12.7); Neutrophils % 72.6 % (38.7-73.9); Platelet Count 160 T/CUMM (130-400); Red Blood Count 3.26 MC/CUMM (3.8-5.5); Red Cell Distribution Width 18.3 % (9.3-17.3); White Blood Count 11.6 T/CUMM (4-12)
[2019-05-06 05:38] LABS: Calcium 7.9 MG/DL (8.5-10.1); Osmolality,Calculated 280.3 MOS/KG (273-304)
[2019-05-06] MEDS: NITROGLYCERIN 2% OINT 1 INCH/GM PACK TOP SCH ×3 (05:55→17:57)
[2019-05-06] MEDS: INSULIN REGULAR 100 UNIT/ML SUBCUT SCH ×4 (07:44→20:57)
[2019-05-06] MEDS ORDERED: cefTRIAXone 1,000 MG in SYRINGE 1 EACH IV SCH (08:30)
[2019-05-06] MEDS: PANTOPRAZOLE 40 MG VIAL IV SCH ×2 (09:15→20:58)
[2019-05-06] MEDS: GABAPENTIN 300 MG CAPSULE PO SCH (09:16)
[2019-05-06] MEDS: AMIODARONE 200 MG TABLET PO SCH ×2 (09:16→20:57)
[2019-05-06] MEDS: SERTRALINE 50 MG TABLET PO SCH (09:17)
[2019-05-06] MEDS: ASCORBIC ACID 500 MG TABLET PO SCH ×2 (09:17→20:56)
[2019-05-06] MEDS: FUROSEMIDE 40 MG TABLET PO SCH (09:17)
[2019-05-06] MEDS: FLUTICASONE 50 MCG NASAL SPRAY 16 GM BOTTLE BOTH NARES SCH (09:17)
[2019-05-06] MEDS: ASPIRIN CHEW 81 MG TABLET PO SCH (09:17)
[2019-05-06] MEDS: POTASSIUM CHLORIDE 20 MEQ TABLET PO PRN ×3 (12:48→17:16)
[2019-05-06] MEDS: carvediloL 3.125 MG TABLET PO SCH (12:48)
[2019-05-06] MEDS: ROSUVASTATIN 20 MG TABLET PO SCH (20:56)
[2019-05-06] MEDS: GABAPENTIN 600 MG TABLET PO SCH (20:56)
[2019-05-06] MEDS: TAMSULOSIN 0.4 MG CAPSULE PO SCH (20:57)
[2019-05-06] MEDS: INSULIN GLARGINE 100 UNIT/ML SUBCUT SCH (20:57)
[2019-05-07] MEDS: NITROGLYCERIN 2% OINT 1 INCH/GM PACK TOP SCH ×4 (00:29→17:42)
[2019-05-07] MEDS: carvediloL 3.125 MG TABLET PO SCH ×2 (00:29→12:59)
[2019-05-07] MEDS: LEVALBUTEROL 1.25 MG/3 ML NEB RESP TX SCH ×4 (01:20→20:42)
[2019-05-07 05:36] LABS: Basophils % 0.1 % (0.0-0.8); Eosinophils # 0.3 10*3/uL (0.0-0.87); Eosinophils % 2.2 % (0.00-10.9); Hematocrit 29.8 VOL% (42.0-52.0); Hemoglobin 9.5 GM/DL (14.0-18.0); Immature Granulocytes % 0.6 %; Immature Granulocytes Absolute 0.07 #; Lymphocytes # 1.9 10*3/uL (1.4-4.0); Lymphocytes % 16.8 % (21.2-54.2); Mean Corpuscular HGB Conc 31.9 GM/DL (32-36); Mean Corpuscular Volume 90.3 FL (87-102); Monocytes % 8.7 % (1.7-12.7); Neutrophils % 71.6 % (38.7-73.9); Platelet Count 171 T/CUMM (130-400); Red Cell Distribution Width 18.5 % (9.3-17.3); White Blood Count 11.4 T/CUMM (4-12)
[2019-05-07 05:53] LABS: Osmolality,Calculated 278.5 MOS/KG (273-304)
[2019-05-07] MEDS: INSULIN REGULAR 100 UNIT/ML SUBCUT SCH ×4 (08:51→21:20)
[2019-05-07] MEDS: LOSARTAN 25 MG TABLET PO SCH (09:58)
[2019-05-07] MEDS: ASPIRIN CHEW 81 MG TABLET PO SCH (09:58)
[2019-05-07] MEDS: AMIODARONE 200 MG TABLET PO SCH ×2 (09:58→21:20)
[2019-05-07] MEDS: PANTOPRAZOLE 40 MG VIAL IV SCH ×2 (09:59→21:21)
[2019-05-07] MEDS: FLUTICASONE 50 MCG NASAL SPRAY 16 GM BOTTLE BOTH NARES SCH (09:59)
[2019-05-07] MEDS: FUROSEMIDE 40 MG TABLET PO SCH (09:59)
[2019-05-07] MEDS: SERTRALINE 50 MG TABLET PO SCH (09:59)
[2019-05-07] MEDS: GABAPENTIN 300 MG CAPSULE PO SCH (09:59)
[2019-05-07] MEDS: ASCORBIC ACID 500 MG TABLET PO SCH ×2 (09:59→21:20)
[2019-05-07] MEDS ORDERED: MAGNESIUM OXIDE 400 MG TABLET PO ONE (10:28)
[2019-05-07] MEDS: MAGNESIUM CHLORIDE 64 MG TABLET PO SCH (13:06)
[2019-05-07] MEDS: ROSUVASTATIN 20 MG TABLET PO SCH (21:19)
[2019-05-07] MEDS: GABAPENTIN 600 MG TABLET PO SCH (21:20)
[2019-05-07] MEDS: TAMSULOSIN 0.4 MG CAPSULE PO SCH (21:20)
[2019-05-07] MEDS: INSULIN GLARGINE 100 UNIT/ML SUBCUT SCH (21:21)
[2019-05-08] MEDS: NITROGLYCERIN 2% OINT 1 INCH/GM PACK TOP SCH ×2 (00:18→05:25)
[2019-05-08] MEDS: carvediloL 3.125 MG TABLET PO SCH ×2 (00:19→11:00)
[2019-05-08 07:10] LABS: Basophils % 0.1 % (0.0-0.8); Eosinophils # 0.2 10*3/uL (0.0-0.87); Eosinophils % 1.6 % (0.00-10.9); Hematocrit 29.3 VOL% (42.0-52.0); Hemoglobin 9.3 GM/DL (14.0-18.0); Immature Granulocytes % 0.5 %; Immature Granulocytes Absolute 0.06 #; Lymphocytes # 1.9 10*3/uL (1.4-4.0); Lymphocytes % 16.7 % (21.2-54.2); Mean Corpuscular HGB Conc 31.7 GM/DL (32-36); Mean Corpuscular Volume 89.3 FL (87-102); Mean Platelet Volume 10.4 FL (9.6-12.0); Monocytes % 8.4 % (1.7-12.7); Neutrophils % 72.7 % (38.7-73.9); Platelet Count 180 T/CUMM (130-400); Red Blood Count 3.28 MC/CUMM (3.8-5.5); Red Cell Distribution Width 18.3 % (9.3-17.3); White Blood Count 11.5 T/CUMM (4-12)
[2019-05-08 07:43] LABS: Calcium 8.4 MG/DL (8.5-10.1); Osmolality,Calculated 275.8 MOS/KG (273-304)
[2019-05-08] MEDS: LEVALBUTEROL 1.25 MG/3 ML NEB RESP TX SCH ×2 (08:04→08:05)
[2019-05-08 08:19] VITALS: BP 126/64
[2019-05-08] MEDS: INSULIN REGULAR 100 UNIT/ML SUBCUT SCH (08:34)
[2019-05-08] MEDS: MAGNESIUM CHLORIDE 64 MG TABLET PO SCH (09:28)
[2019-05-08] MEDS: AMIODARONE 200 MG TABLET PO SCH (09:29)
[2019-05-08] MEDS: ASCORBIC ACID 500 MG TABLET PO SCH (09:30)
[2019-05-08] MEDS: SERTRALINE 50 MG TABLET PO SCH (09:30)
[2019-05-08] MEDS: FUROSEMIDE 40 MG TABLET PO SCH (09:30)
[2019-05-08] MEDS: GABAPENTIN 300 MG CAPSULE PO SCH (09:30)
[2019-05-08] MEDS: ASPIRIN CHEW 81 MG TABLET PO SCH (09:31)
[2019-05-08] MEDS: PANTOPRAZOLE 40 MG VIAL IV SCH (09:32)
[2019-05-08] MEDS: FLUTICASONE 50 MCG NASAL SPRAY 16 GM BOTTLE BOTH NARES SCH (09:32)
[2019-05-08] MEDS: LOSARTAN 25 MG TABLET PO SCH (09:32)
[2019-05-08] MEDS: POTASSIUM CHLORIDE 20 MEQ TABLET PO PRN (09:38)
== END 2019-05-08 12:10 | disposition home or self-care (01) | DRG 377 ==
LOC: EDUNIT# → EDBD → N.ED 03:57 → SUATTDRO 05:10 → N.EDINP 05:10 → N.2E 05:56 → N.TELES 04-24 11:29 → N.CC 05-02 00:28 → N.TELEN 05-03 13:08
PROVIDERS: ADMIT Internal Medicine; ATTEND Internal Medicine

== ENCOUNTER 2019-08-14 06:02 | Observation (INO) ==
[2019-08-14] MEDS ORDERED: MAGNESIUM SULF RIDER 2 GM in PREMIX 1 EACH IV PRN (06:42)
[2019-08-14] MEDS ORDERED: DEXTROSE 5% NACL 0.45% 1,000 ML IV SCH (06:42)
[2019-08-14] MEDS ORDERED: ASPIRIN 325 MG TABLET PO ONE (06:42)
[2019-08-14] MEDS ORDERED: diphenhydrAMINE CAP 25 MG CAPSULE PO ONE (06:42)
[2019-08-14] MEDS ORDERED: DIAZEPAM 5 MG TABLET PO ONE (06:42)
[2019-08-14] MEDS ORDERED: POTASSIUM CHLORIDE RIDER 10 MEQ in PREMIX 1 EACH IV PRN (06:42)
[2019-08-14] MEDS ORDERED: HEPARIN/NACL 0.9% 2 UNITS/ML 1,000 ML IV ONE (06:55)
[2019-08-14] MEDS ORDERED: LIDOCAINE 1%/EPI INJ 20 ML VIAL ONE (06:55)
[2019-08-14] MEDS ORDERED: DIAZEPAM 5 MG TABLET ONE (07:01)
[2019-08-14] MEDS ORDERED: ASPIRIN 325 MG TABLET ONE (07:01)
[2019-08-14] MEDS ORDERED: diphenhydrAMINE CAP 25 MG CAPSULE ONE (07:01)
[2019-08-14] MEDS ORDERED: ALUM/MAG/SIMETH/LIDO VISC 1:1 30 ML BOTTLE PO ONE ×2 (08:54→08:55)
[2019-08-14] MEDS ORDERED: ACETAMINOPHEN 500 MG TABLET PO PRN (09:06)
[2019-08-14] MEDS ORDERED: NITROGLYCERIN SL 0.4 MG TABLET SL PRN (09:06)
[2019-08-14] MEDS ORDERED: MORPHINE 4 MG/1 ML VIAL IV PRN (09:07)
[2019-08-14] MEDS ORDERED: diphenhydrAMINE CAP 25 MG CAPSULE PO PRN (11:18)
[2019-08-14] MEDS ORDERED: MAGNESIUM HYDROXIDE SUSP 30 ML UDCUP PO PRN (11:18)
[2019-08-14] MEDS: METOCLOPRAMIDE 10 MG TABLET PO SCH ×3 (12:16→20:52)
[2019-08-14] MEDS ORDERED: HYDROmorphone 2 MG/1 ML VIAL ONE (12:18)
[2019-08-14] MEDS: HYDROmorphone 2 MG/1 ML VIAL IV PRN ×2 (12:25→20:53)
[2019-08-14] MEDS ORDERED: GLUCAGON 1 MG VIAL IM PRN (12:40)
[2019-08-14] MEDS ORDERED: DEXTROSE 10% 250 ML BAG IV PRN (12:40)
[2019-08-14] MEDS: INSULIN REGULAR 100 UNIT/ML SUBCUT SCH ×3 (12:57→20:53)
[2019-08-14] MEDS ORDERED: SAXAGLIPTIN METFORMIN PO SCH (17:00)
[2019-08-14] MEDS: MAGNESIUM CHLORIDE 64 MG TABLET PO SCH (20:51)
[2019-08-14] MEDS: PANTOPRAZOLE 40 MG TABLET PO SCH (20:52)
[2019-08-14] MEDS: ASCORBIC ACID 500 MG TABLET PO SCH (20:52)
[2019-08-14] MEDS: AMIODARONE 200 MG TABLET PO SCH (20:53)
[2019-08-14] MEDS ORDERED: carvediloL 3.125 MG TABLET PO SCH (21:00)
[2019-08-14] MEDS ORDERED: ROSUVASTATIN 20 MG TABLET PO SCH (21:00)
[2019-08-14] MEDS ORDERED: ALPRAZolam 0.5 MG TABLET PO SCH (21:00)
[2019-08-14] MEDS ORDERED: TAMSULOSIN 0.4 MG CAPSULE PO SCH (21:00)
[2019-08-14] MEDS ORDERED: GABAPENTIN 300 MG CAPSULE PO SCH (21:00)
[2019-08-14] MEDS ORDERED: MONTELUKAST 10 MG TABLET PO SCH (21:00)
[2019-08-15 01:19] LABS: Calcium 8.8 MG/DL (8.5-10.1); Osmolality,Calculated 270.1 MOS/KG (273-304)
[2019-08-15 01:32] LABS: Basophils % 0.4 % (0.0-0.8); Eosinophils # 0.2 10*3/uL (0.0-0.87); Eosinophils % 1.8 % (0.00-10.9); Hematocrit 29.9 VOL% (42.0-52.0); Hemoglobin 9.1 GM/DL (14.0-18.0); Immature Granulocytes % 0.7 %; Immature Granulocytes Absolute 0.06 #; Lymphocytes # 1.2 10*3/uL (1.4-4.0); Mean Corpuscular HGB Conc 30.4 GM/DL (32-36); Mean Corpuscular Volume 91.7 FL (87-102); Monocytes % 10.2 % (1.7-12.7); Neutrophils % 72.9 % (38.7-73.9); Platelet Count 167 T/CUMM (130-400); Red Blood Count 3.26 MC/CUMM (3.8-5.5); Red Cell Distribution Width 15.1 % (9.3-17.3); White Blood Count 8.3 T/CUMM (4-12)
[2019-08-15 08:01] VITALS: BP 102/50
[2019-08-15] MEDS: INSULIN REGULAR 100 UNIT/ML SUBCUT SCH (08:02)
[2019-08-15] MEDS: ASCORBIC ACID 500 MG TABLET PO SCH (08:38)
[2019-08-15] MEDS: MAGNESIUM CHLORIDE 64 MG TABLET PO SCH (08:38)
[2019-08-15] MEDS: METOCLOPRAMIDE 10 MG TABLET PO SCH (08:38)
[2019-08-15] MEDS: AMIODARONE 200 MG TABLET PO SCH (08:39)
[2019-08-15] MEDS: PANTOPRAZOLE 40 MG TABLET PO SCH (08:39)
[2019-08-15] MEDS ORDERED: SERTRALINE 50 MG TABLET PO SCH (09:00)
[2019-08-15] MEDS ORDERED: ASPIRIN EC 81 MG TABLET PO SCH (09:00)
[2019-08-15] MEDS ORDERED: LOSARTAN 25 MG TABLET PO SCH (09:00)
[2019-08-15] MEDS ORDERED: FLUTICASONE 50 MCG NASAL SPRAY 16 GM BOTTLE BOTH NARES SCH (09:00)
[2019-08-15] MEDS ORDERED: GLIMEPIRIDE 2 MG TABLET PO SCH (09:00)
[2019-08-15] MEDS ORDERED: CLOPIDOGREL 75 MG TABLET PO SCH (09:00)
[2019-08-15] MEDS ORDERED: GABAPENTIN 300 MG CAPSULE PO SCH (09:00)
== END 2019-08-15 11:03 | disposition home or self-care (01) ==
LOC: N.CL 06:02 → N.TELES 06:02 → N.CL 06:08 → N.TELES 15:17
PROVIDERS: ADMIT Internal Medicine Interventional Cardiology; ATTEND Internal Medicine Interventional Cardiology